=== PATIENT | female | born 1975 | race African-American/Black ===

== ENCOUNTER 2017-02-18 20:28 | Inpatient (IN) | payer MEDICARE ==
[~2017-02-18] VITALS: Ht 165.1 cm; Wt 77.6 kg
[2017-02-18 20:57] VITALS: BP 135/90
--- NOTE | 2017-02-18 21:08 | NUR ---
PT TAKEN TO OF3
--- NOTE | 2017-02-18 21:15 | NUR ---
PT MOVED TO BED 8
--- NOTE | 2017-02-18 21:20 | NUR ---
PT MOVED TO BED 7
--- NOTE | 2017-02-18 21:22 | NUR ---
Dr. Parrish evaluating patient at bedside.
[2017-02-18 21:53] LABS: BASOPHILS # (AUTO) 0.2 K/uL (0.00-0.22); BASOPHILS % (AUTO) 1.2 % (0.0-2.0); EOSINOPHILS # (AUTO) 0.5 K/uL (0-0.4); EOSINOPHILS % (AUTO) 2.7 % (0.0-4.0); HEMATOCRIT 32.8 % (36-48); HEMOGLOBIN 10.1 g/dL (12.0-16.0); LYMPHOCYTES # (AUTO) 2.4 K/uL (2.5-16.5); LYMPHOCYTES % (AUTO) 13.8 % (20.5-51.1); MEAN CORPUSCULAR HEMOGLOBIN 22 pg (27-31); MEAN CORPUSCULAR HGB CONC 31 g/dL (33-37); MEAN CORPUSCULAR VOLUME 72 fL (80-94); MONOCYTES # (AUTO) 1.4 K/uL (0.8-1.0); MONOCYTES % (AUTO) 8.1 % (1.7-9.3); NEUTROPHILS # (AUTO) 12.7 K/uL (1.8-7.7); NEUTROPHILS % (AUTO) 74.2 % (42.2-75.2); PLATELET COUNT (AUTO) 330 K/uL (140-450); RED BLOOD CELL COUNT(AUTO) 4.55 MIL/uL (4.20-5.40); RED CELL DISTRIBUTION WIDTH 17.1 % (11.6-13.7); WHITE BLOOD COUNT (AUTO) 17.2 K/uL (4.8-10.8)
--- NOTE | 2017-02-18 22:00 | NUR ---
41Y/F PT. PRESENTS TO ED WITH C/O SUICIDAL IDEATION. PT. STATES SHE WANTED TO KILL HERSELF BY TAKING TYLENOL AND MOTRIN BUT SHE CHANGE HER MIND AND SEEKING FOR HELP. HX. SCHIZOPRENIA AND BIPOLAR; SKIN IS PINK/WARM/DRY; AAOX4 WITH EVEN AND STEADY GAIT; LUNGS CLEAR BL; HR EVEN AND REGULAR; PT DENIES ANY FEVER, CP, SOB, OR COUGH AT THIS TIME; PATIENT STATES PAIN OF 0/10 AT THIS TIME; VSS; PATIENT POSITIONED FOR COMFORT; HOB ELEVATED; BEDRAILS UP X2; BED DOWN. ER MD MADE AWARE OF PT STATUS.
[2017-02-18 22:02] LABS: AMPHETAMINE, URINE NEG. ng/ml (NEG <=1000); BARBITURATE, URINE NEG. ng/ml (NEG <=200); BENZODIAZEPINE, URINE NEG. ng/mL (NEG <=200); CANNABINOID, URINE NEG. ng/mL (NEG <=50); COCAINE, URINE NEG. ng/mL (NEG <=300); OPIATE, URINE NEG. ng/mL (NEG <=2000); PHENCYCLIDINE SCREEN,URINE NEG. ng/mL (NEG <=25)
--- NOTE | 2017-02-18 22:07 | NUR ---
[place] [employer] AT BEDSIDE
[2017-02-18 22:12] LABS: ALANINE AMINOTRANSFERASE 37 U/L (14-59); ALBUMIN 3.2 g/dL (3.4-5.0); ALCOHOL, BLOOD < 3 mg/dL (<3); ALKALINE PHOSPHATASE 78 U/L (46-116); ANION GAP 11.6 (8-16); ASPARTATE AMINOTRANSFERASE 14 U/L (15-37); CALCIUM 8.7 mg/dL (8.5-10.1); CARBON DIOXIDE 28.9 mmol/L (21-32); CHLORIDE 102 mmol/L (98-107); CREATININE 0.9 mg/dL (0.6-1.3); GFR ARICAN-AMERICAN 89 mL/min (>90); GFR NON ARICAN-AMERICAN 74 mL/min (>90); GLUCOSE 103 mg/dL (74-106); POTASSIUM 3.5 mmol/L (3.5-5.1); SALICYLATE < 2.8 mg/dL (2.8-20.0); SODIUM SERUM 139 mmol/L (136-145); TOTAL BILIRUBIN 0.2 mg/dL (0.0-1.0); TOTAL PROTEIN, SERUM 7.8 g/dL (6.4-8.2); UREA NITROGEN, BLOOD 12 mg/dL (7-18)
[2017-02-18 22:13] LABS: ACETAMINOPHEN < 0.5 ug/ml (10-30); PROTHROMBIN TIME 10.3 secs (10.8-13.4)
--- NOTE | 2017-02-18 22:19 | NUR ---
PT PLACED ON A 5150 HOLD BY SHEREE SANTANA
--- NOTE | 2017-02-18 22:59 | NUR ---
Patient appears to be resting comfortably in bed. Vital Signs within normal limits. Respirations even and unlabored.
--- NOTE | 2017-02-19 00:34 | NUR ---
Patient appears to be resting comfortably in bed. Vital Signs within normal limits. Respirations even and unlabored.
--- NOTE | 2017-02-19 00:50 | NUR ---
PT ATE 100% OF DINNER. RESP E/U, RNS W/O ECT AT THIS TIME
--- NOTE | 2017-02-19 01:41 | NUR ---
Patient appears to be resting comfortably in bed. Vital Signs within normal limits. Respirations even and unlabored.
--- NOTE | 2017-02-19 03:01 | NUR ---
Patient appears to be resting comfortably in bed. Vital Signs within normal limits. Respirations even and unlabored.
[2017-02-19] MEDS ORDERED: ONDANSETRON 4 MG/2 ML VIAL IM/IVP PRN (03:50)
[2017-02-19] MEDS ORDERED: ACETAMINOPHEN 325 MG TAB PO PRN (03:50)
[2017-02-19] MEDS ORDERED: DOCUSATE SODIUM 100 MG GELCAP PO PRN (03:50)
[2017-02-19 04:10] VITALS: BP 130/79
--- NOTE | 2017-02-19 04:10 | NUR ---
RECEIVED PT TRANSFERRED FROM ER VIA [facility], PT IS AAOX4, ABLE TO FOLLOW COMMANDS AND MAKE NEEDS KNOWN, DEPRESSED, NO SUICIDAL IDEATION AT THIS TIME. DENIES PAIN, VSS. NO S/S OF SOB/DISTRESS, BREATHING EVEN AND UNLABORED, CLEAR LUNG SOUNDS, DENIES CHEST PAIN, SR ON TELE MONITOR, SOFT ABDOMEN WITH ACTIVE BOWEL SOUNDS, CONTINENT WITH B&B'S, ABLE TO AMBULATE WITH STEADY GAIT, SKIN IS INTACT, WARM AND DRY TO TOUCH, IV SITE TO RIGHT WRIST 20 GA RUNNING NS AT 120 ML/HR. ORIENTATED PATIENT TO ROOM AND SETTING, EXPLAINED PLAN OF CARE TO PT, PT VERBALIZED UNDERSTANDING, SAFETY MEASURE IN PLACE, CALL LIGHT WITHIN REACH, WILL CONTINUE TO MONITOR.
[2017-02-19] MEDS ORDERED: LORazepam 1 MG TAB PO PRN (04:15)
--- NOTE | 2017-02-19 04:15 | NUR ---
Patient will be admitted to care of SHARONA. Admited to TELE. Will go to room ICU3. Belongings list completed. Report to VIVIAN.
[2017-02-19] MEDS: NACL 0.9% 1,000 ML IV SCH ×4 (04:25→20:26)
--- NOTE | 2017-02-19 04:30 | NUR ---
DR. NOLAN EVALUATE PATIENT AT BEDSIDE
[2017-02-19 04:46] LABS: MAGNESIUM 1.8 mg/dL (1.8-2.4); THYROID STIMULATING HORMONE 4.9 uIU/mL (0.34-3.74)
--- NOTE | 2017-02-19 05:00 | NUR ---
PT ASKING FOR FOOD, SANDWICH GIVEN
--- NOTE | 2017-02-19 05:11 | NUR ---
PT C/O SEVERE MUSCLE SPASM TO RIGHT LOWER EXTREMITY, EDUCATED AND MEDICATED.
[2017-02-19] MEDS: KETOROLAC 30 MG/ML VIAL IM PRN ×2 (05:17→12:03)
--- NOTE | 2017-02-19 07:30 | NUR ---
REPORT GIVEN TO EUGENIO RN AT BEDSIDE FOR CONTINUE OF CARE, PT IS IN STABLE CONDITION
--- NOTE | 2017-02-19 07:30 | NUR ---
DR. SINGH AND GROUP AT BEDSIDE TO SEE PT. WILL F/U WITH NEW ORDERS.
--- NOTE | 2017-02-19 07:35 | NUR ---
RECEIVED REPORT FROM YENIFER PARK. PT IS A/O X4. VERBALLY RESPONSIVE. ABLE TO FOLLOW COMMAND. NO C/O PAIN OR DISCOMFORT NOTED. PT STILL VOICING DEPRESSION AND SUICIDAL THOUGHTS. NO PLAN OF NOW. DESIRES TO BE IN PSYCH [facility]. AWARE. PT IS ON ROOM AIR SATURATING AT 98%. SR ON MONITOR. PT ABLE TO MOVE ALL EXTREMITIES. R WRIST 20 GAUGE IV NOTED. PATENT AND INTACT. SKIN IS INTACT. PT ABLE TO VOID INDEPENDENTLY. URINE IS CLEAR AND YELLOW. SAMPLE COLLECTED ORDERED AND SEND TO LAB. SAFETY PRECAUTION MAINTAINED. BED AT LOWEST SETTINGS. CALL LIGHT WITHIN REACH. WILL CONTINUE TO MONITOR.
--- NOTE | 2017-02-19 07:40 | NUR ---
PT ABLE TO VOID INDEPENDENTLY. URINE IS CLEAR AND YELLOW. SAMPLE COLLECTED ORDERED AND SEND TO LAB.
--- NOTE | 2017-02-19 07:45 | NUR ---
PT ABLE TO EAT INDEPENDENTLY. CLOSE MONITORING GIVEN. ATE APPROXIMATELY 75 % OF MEAL.
[2017-02-19 08:00] VITALS: BP 129/76
[2017-02-19] MEDS: ESCITALOPRAM 20 MG TAB PO SCH (08:09)
[2017-02-19] MEDS: FERROUS SULFATE 325 MG TABEC PO SCH (08:09)
--- NOTE | 2017-02-19 08:10 | NUR ---
MEDICATION ADMINISTERED ORDERED. TOLERATED WELL. WILL CONTINUE TO MONITOR FOR CHANGES.
[2017-02-19 08:25] LABS: APPEARANCE,URINE CLEAR (CLEAR); BILIRUBIN,URINE NEGATIVE (NEGATIVE); BLOOD, URINE NEGATIVE (NEGATIVE); COLOR,URINE YELLOW (YELLOW); LEUKOCYTE ESTERASE ,URINE NEGATIVE (NEGATIVE); NITRITE, URINE NEGATIVE (NEGATIVE); PROTEIN,URINE NEGATIVE (NEGATIVE); UGLUCOSE NEGATIVE (NEGATIVE); UROBILINOGEN,URINE 0.2 EU/dL (0.2 - 1)
--- NOTE | 2017-02-19 08:36 | NUR ---
PER DR. MURGUIA, HE FAXED DR. TINOCO FOR CONSULT. VOICEMAIL ALSO LEFT. AWAITING CALL BACK.
--- NOTE | 2017-02-19 09:00 | NUR ---
DR. MORGAN AT BEDSIDE TO SEE PT. WILL F/U WITH NEW ORDERS.
--- NOTE | 2017-02-19 09:20 | NUR ---
PATIENT HAS BEEN SCREENED AND CATEGORIZED LOW NUTRITION RISK. PATIENT WILL BE SEEN WITHIN 7 DAYS OF ADMISSION. 02/25/[address]
--- NOTE | 2017-02-19 10:00 | NUR ---
PT SLEEPING COMFORTABLY IN BED.
--- NOTE | 2017-02-19 11:00 | NUR ---
PT SLEEPING COMFORTABLY IN BED. EASILY AWOKEN. NO C/O PAIN OR DISCOMFORT.
[2017-02-19] MEDS ORDERED: PROBIOTIC SCREEN 1 EA MISC MC PRN (11:40)
[2017-02-19 12:00] VITALS: BP 134/88
--- NOTE | 2017-02-19 12:00 | NUR ---
PT C/O HEADACHE. PRN PAIN MEDICATION ADMINISTERED ORDERED. TOLERATED WELL. WILL CONTINUE TO MONITOR
--- NOTE | 2017-02-19 12:01 | NUR ---
CM NOTE SPOKE WITH [facility] [phone] EXT [phone] AND SHE SAID REVIEWS SHOULD ONLY BE SENT TO [facility]. SPOKE WITH [facility] PH [phone] [phone] AND SHE SAID TO FAX REVIEWS TO [phone]. FAXED INITIAL REVIEW TO [facility] [phone].
--- NOTE | 2017-02-19 12:13 | NUR ---
SS NOTE: SENT PSYCH PLACEMENT INQUIRY TO [facility], RECEIVED FAX CONFIRMATION
--- NOTE | 2017-02-19 13:00 | NUR ---
BEDBATH GIVEN. PT TOLERATED WELL. RESTING COMFORTABLY
--- NOTE | 2017-02-19 14:41 | NUR ---
CM NOTE RECEIVED FAX FROM [facility] CM [place] REQUESTING REVIEW TO BE FAXED TO [phone]. FAXED INITIAL REVIEW TO [facility] [phone].
--- NOTE | 2017-02-19 15:34 | NUR ---
DR. GIL AT BEDSIDE TO SEE PT. WILL F/U WITH NEW ORDERS.
[2017-02-19 16:00] VITALS: BP 128/77
[2017-02-19 17:58] LABS: BASOPHILS # (AUTO) 0.1 K/uL (0.00-0.22); BASOPHILS % (AUTO) 0.6 % (0.0-2.0); EOSINOPHILS # (AUTO) 0.5 K/uL (0-0.4); HEMATOCRIT 33.1 % (36-48); HEMOGLOBIN 9.8 g/dL (12.0-16.0); LYMPHOCYTES % (AUTO) 18.1 % (20.5-51.1); MEAN CORPUSCULAR HEMOGLOBIN 22 pg (27-31); MEAN CORPUSCULAR HGB CONC 30 g/dL (33-37); MEAN CORPUSCULAR VOLUME 73 fL (80-94); MONOCYTES % (AUTO) 8.9 % (1.7-9.3); NEUTROPHILS # (AUTO) 7.3 K/uL (1.8-7.7); NEUTROPHILS % (AUTO) 67.4 % (42.2-75.2); PLATELET COUNT (AUTO) 296 K/uL (140-450); RED BLOOD CELL COUNT(AUTO) 4.53 MIL/uL (4.20-5.40); RED CELL DISTRIBUTION WIDTH 16.4 % (11.6-13.7); WHITE BLOOD COUNT (AUTO) 10.9 K/uL (4.8-10.8)
--- NOTE | 2017-02-19 19:15 | NUR ---
RECEIVED REPORT FROM [address]
--- NOTE | 2017-02-19 19:15 | NUR ---
REPORT GIVEN TO YENIFER STARK. PT IS STABLE.
--- NOTE | 2017-02-19 19:30 | NUR ---
PATIENT IN BED, NO SIGNS OF DISTRESS. AOX4. BREATH SOUNDS CLEAR ON AUSCULTATION. S1S2 HEARD. PATIENT NORMAL SINUS RHYTHM WITH PVC ON THE MONITOR. ACTIVE BOWEL SOUNDS. PATIENT IS VOIDING. LAST BOWEL MOVEMENT YESTERDAY. PATIENT IS AMBULATORY. IV 20G ON RIGHT WRIST. CALL LIGHT WITHIN REACH, PATIENT CLOSE TO NURSES STATION. FREQUENT VISUAL CHECKS. PATIENT STATES SHES FEELING BETTER, BUT STILL FEELS LIKE HARMING HERSELF.
[2017-02-19 20:00] VITALS: BP 129/73
--- NOTE | 2017-02-19 20:45 | NUR ---
PATIENT SLEEPING IN BED, NO SIGNS OF DISTRESS.
--- NOTE | 2017-02-19 23:45 | NUR ---
PATIENT VOIDED 1000ML. PATIENT AMBULATED. PATIENT ATE JELLO.
[2017-02-20] VITALS: BP 123/72
--- NOTE | 2017-02-20 01:30 | NUR ---
PATIENT IN BED SLEEPING, NO SIGNS OF DISTRESS.
[2017-02-20 04:00] VITALS: BP 133/57
--- NOTE | 2017-02-20 04:00 | NUR ---
PATIENT VOIDED ANOTHER 1000ML.PATIENT AMBULATED. PATIENT AT [facility].
[2017-02-20] MEDS: NACL 0.9% 1,000 ML IV SCH ×3 (04:46→21:26)
--- NOTE | 2017-02-20 05:30 | NUR ---
PATIENT STILL SAYS SHE HAS SUICIDAL IDEATION. WILL CONTINUE TO MONITOR.
--- NOTE | 2017-02-20 07:30 | NUR ---
GAVE REPORT TO [address]
--- NOTE | 2017-02-20 07:30 | NUR ---
RECEIVED REPORT FROM [address]. PT AWAKE, ALERT, AND ORIENTED. NO S/S OF RESPIRATORY DISTRESS NOTED. PT MED-SURG STATUS. BEDSIDE MONITOR SHOWS SR, LUNG SOUNDS CLEAR, IV TO RIGHT HAND # 20 RUNNING NS AT 120 ML/HR. SITE INTACT AND PATENT. PT ABLE TO AMBULATE, PT STATED SHE STILL HAVE SUICIDAL IDEATION BUT SHE DOES NOT HAVE ANY PLAN YET. CALL LIGHT IN REACH. WILL CONTINUE TO MONITOR PT CLOSELY.
[2017-02-20 08:00] VITALS: BP 139/89
[2017-02-20] MEDS: ESCITALOPRAM 20 MG TAB PO SCH (08:09)
[2017-02-20] MEDS: FERROUS SULFATE 325 MG TABEC PO SCH (08:09)
--- NOTE | 2017-02-20 09:00 | NUR ---
DUE MEDS GIVEN. PT TOLERATED WELL.
--- NOTE | 2017-02-20 09:24 | NUR ---
CM NOTE CONCURRENT REVIEW FAXED TO [phone] CM [place] EXT [phone].
--- NOTE | 2017-02-20 10:34 | NUR ---
PT AMBULATE TO BEDSIDE COMMODE , PT HAD CLEAR YELLOW URINE 300 ML.
--- NOTE | 2017-02-20 10:46 | NUR ---
SS NOTE: PER MIN FROM [facility], THEY HAVE DECLINED PT. SHE STATED THAT PT HAS BEEN WITH THEM IN THE PAST AND HAS BEEN A PLACEMENT ISSUE FOR THEM.
--- NOTE | 2017-02-20 12:34 | NUR ---
SS NOTE: PER LAUREN FROM [facility], THEY ARE UNABLE TO ACCEPT PTS ON A 51/50 HOLD SINCE THEY ARE NOT LPS ANYMORE PER FABRICE FROM [facility], NO FEMALE BEDS AVAILABLE
--- NOTE | 2017-02-20 13:58 | NUR ---
PT AMBULATE TO BEDSIDE COMMODE, VOIDED 400 ML.
--- NOTE | 2017-02-20 15:20 | NUR ---
SS NOTE: PER JOSEFINA FROM [facility] (C: [phone]), NO FEMALE BEDS AVAILABLE PER ALEX FROM [facility], THEY DO NOT ACCEPT ADULT MEDI-DIONI PER KIT FROM [facility], THEY DO NOT ACCEPT ADULT MEDI-DIONI PER NUPUR FROM [facility], THEY DO NOT ACCEPT ADULT MEDI-DIONI PER JANNIE FROM [facility], THEY DO NOT HAVE A CONTRACT WITH ADULT MEDI-IDONI PER ADITI FROM [facility], THEY ONLY TAKE MEDI-DIONI PTS UP TO AGE 20 MESSAGE LEFT FOR [facility] REGARDING FEMALE BED AVAILABILITY ([phone])
[2017-02-20 16:00] VITALS: BP 138/76
[2017-02-20] MEDS: KETOROLAC 30 MG/ML VIAL IM PRN (16:34)
--- NOTE | 2017-02-20 18:17 | NUR ---
PT SLEEPING AT THIS TIME. NO S/S OF RESPIRATORY DISTRESS NOTED, CALL LIGHT IN REACH, WILL CONTINUE TO MONITOR.
--- NOTE | 2017-02-20 19:07 | NUR ---
REPORT GIVEN TO [address].
--- NOTE | 2017-02-20 19:15 | NUR ---
RECEIVED REPORT FROM [address].
--- NOTE | 2017-02-20 19:39 | NUR ---
PATIENT IN BED, NO SIGNS OF DISTRESS. PATIENT IS AOX4. PATIENT STATES SHE FEELS DEPRESSED AND STILL HAS THOUGHTS OF SUICIDE. WANTS TO BE TRANSFERRED TO A PSYCH FACILITY. BREATH SOUNDS CLEAR. S1S2 HEARD ON AUSCULTATION. SINUS RHYTHM WITH OCCASIONAL PVC'S ON THE MONITOR. PATIENT DENIES ABDOMINAL PAIN. PATIENT VOIDING. ACTIVE BOWEL SOUNDS, LAST BM 02/20/17. PATIENT IS AMBULATORY. PERPHERAL IV IN RIGHT WRIST, PATENT, NON TENDER, 20 GAUGE. PATIENT NEAR THE NURSES STATION, WILL CONTINUE TO MONITOR, FREQUENT VISUAL CHECKS.
--- NOTE | 2017-02-20 21:30 | NUR ---
PATIENT VOIDED, AMBULATED TO COMMODE
[2017-02-21] VITALS: BP 140/65
--- NOTE | 2017-02-21 | NUR ---
PATIENT IN BED SLEEPING, NO SIGNS OF DISTRESS.
--- NOTE | 2017-02-21 02:00 | NUR ---
PATIENT SLEEPING, NO SIGNS OF DISTRESS. SR ON THE MONITOR, O2 SATURATION 98%
--- NOTE | 2017-02-21 03:45 | NUR ---
PATIENT SLEEPING NO SIGNS OF DISTRESS.
--- NOTE | 2017-02-21 05:33 | NUR ---
PATIENT VOIDED 1200ML. PATIENT WENT BACK TO SLEEP.
[2017-02-21] MEDS: NACL 0.9% 1,000 ML IV SCH ×2 (05:46→14:06)
--- NOTE | 2017-02-21 06:29 | NUR ---
PATIENT IN BED RESTING,
--- NOTE | 2017-02-21 07:20 | NUR ---
GAVE REPORT TO [address]
--- NOTE | 2017-02-21 07:30 | NUR ---
RECEIVED REPORT FROM [address]. PT SLEEPING BUT EASILY AWAKING. NO S/S OF RESPIRATORY DISTRESS NOTED. PT MED-SURG STATUS. BEDSIDE MONITOR SHOWS SR, LUNG SOUNDS CLEAR, IV TO RIGHT HAND # 20 RUNNING NS AT 120 ML/HR. SITE INTACT AND PATENT. ABDOMEN SOFT WITH ACTIVE BOWEL SOUND. PT ABLE TO AMBULATE, PT STATED SHE STILL HAVE SUICIDAL IDEATION BUT SHE DOES NOT HAVE ANY PLAN YET. CALL LIGHT IN REACH. WILL CONTINUE TO MONITOR PT CLOSELY.
[2017-02-21 08:00] VITALS: BP 138/88
[2017-02-21] MEDS: ESCITALOPRAM 20 MG TAB PO SCH (08:35)
[2017-02-21] MEDS: FERROUS SULFATE 325 MG TABEC PO SCH (08:36)
--- NOTE | 2017-02-21 08:50 | NUR ---
PT STATED " I WANT TO LEAVE HOSPITAL, I DON'T FEEL DEPRESSED ANYMORE". MD AND CHARGE NURSE AWARE.
--- NOTE | 2017-02-21 09:46 | NUR ---
FAXED DR. TINOCO [phone] F[address] SHEET REGARDING REEVALUATION REQUEST. ALSO CALLED DR. TINOCO OFFICE AND LEFT VOICE MESSAGE.
--- NOTE | 2017-02-21 10:35 | NUR ---
OFFERED PT BED BATH, PT REFUSED.
--- NOTE | 2017-02-21 11:25 | NUR ---
CM NOTE CONCURRENT REVIEW FAXED TO [facility] [phone] CM [place] EXT [phone].
--- NOTE | 2017-02-21 12:05 | NUR ---
LUNCH TRAY SERVED.
--- NOTE | 2017-02-21 13:30 | NUR ---
PT AMBULATE TO BEDSIDE COMMODE, VOIDED 300 ML CLEAR YELLOW URINE.
--- NOTE | 2017-02-21 13:44 | NUR ---
SS NOTE: I SPOKE WITH PT BEDSIDE. PT STATED THAT SHE TOOK A TAXI TO [facility] AFTER SHE SPENT HER MONEY VISITING [place] AND [place]. SHE ALSO STATED THAT [place] RECE[place] $1,158 A MONTH IN [place] BUT HAS SPENT MOST OF IT. SHE REPORTED THAT SHE PLANS ON GOING TO THE [facility] UPON DISCHARGE. SHE ALSO STATED THAT ALL OF HER FAMILY LIVE IN [place] AND SHE MOVED TO [place] WHEN SHE WAS 19 FOR THE FOOD AND SUNSHINE. I PROVIDED PT WITH [facility] AND [facility].
--- NOTE | 2017-02-21 15:26 | NUR ---
PSYCHOLOGIST IN TO ASSESS PT. Addendum: 02/21/17 at 1531 by Cononr Verdugo RN
--- NOTE | 2017-02-21 15:57 | NUR ---
DISCHARGE ORDERED RECEIVED FROM , WILL PREPARE DISCHARGE INSTRUCTIONS.
[2017-02-21 16:00] VITALS: BP 140/90
[2017-02-21] MEDS ORDERED: ESCI10TA PO (16:01)
--- NOTE | 2017-02-21 16:20 | NUR ---
PT AWAKE, ALERT, AND ORIENTED. NO S/S OF RESPIRATORY DISTRESS. DISCHARGE INSTRUCTION GIVEN, PRESCRIPTION GIVEN. PT VERBALIZED UNDERSTANDING. ALL PERSONAL BELONGINGS WITH PT, IV D/C ed. CANNULA INTACT, ARMBANDS REMOVED. BUS VOUCHERS GIVEN, PT WALKED OUT OF UNIT WITH STEADY GAIT ACCOMPANIED WITH MYSELF, OFFER PT WHEEL CHAIR, PT REFUSED. BP 140/90 , O2 SAT 100%, RR 18. HR 80 AT THIS TIME.
== END 2017-02-21 16:20 | disposition home or self-care (01) | DRG 52 ==
LOC: MED 20:28 → MIC 02-19 03:57
PROVIDERS: ADMIT Family Medicine; ATTEND Family Medicine
DX: G93.40 Encephalopathy, unspecified (principal); N17.0 Acute kidney failure with tubular necrosis; E44.0 Moderate protein-calorie malnutrition; F33.2 Major depressive disorder, recurrent severe without psychotic features; R45.851 Suicidal ideations; D50.9 Iron deficiency anemia, unspecified; F33.9 Major depressive disorder, recurrent, unspecified; D72.829 Elevated white blood cell count, unspecified; Z59.0 Homelessness; Z90.710 Acquired absence of both cervix and uterus; Z22.322 Carrier or suspected carrier of Methicillin resistant Staphylococcus aureus; Z68.28 Body mass index [BMI] 28.0-28.9, adult
CPT/HCPCS: 36415; 71010; 80053; 80305; 81003; 81025; 83605; 83735; 84100; 84443; 85025; 85610; 87040; 87081; 99285; G0480; G0482; J1885; J7030; Q0092